=== PATIENT | male | born 1940 | race Caucasian/White ===

== ENCOUNTER 2016-07-29 02:49 | Emergency (ER) | payer OTHER ==
[~2016-07-29] VITALS: Ht 180.3 cm; Wt 97.3 kg
[2016-07-29 04:57] LABS: CARBON DIOXIDE (BICARBONATE) 26.2 MEQ/L (20-31)
[2016-07-29 04:57] LABS: HEMATOCRIT 38.2 % (38.0-50.0); MCH 29.6 PG (29.0-34.0); MCHC 34.6 G/DL (30.0-36.0); MCV 85.7 FL (86-99); MEAN PLAT.VOLUME 11.4 uM^3 (9.0-12.4); PLATELET COUNT 122 K/uL (156-360); RBC DIS.WIDTH-CV 11.9 % (11.8-14.6); RBC DIS.WIDTH-SD 37.2 % (39-53); RED BLOOD COUNT 4.46 M/uL (4.00-5.50); WHITE BLOOD COUNT 5.5 K/uL (4.1-10.2)
[2016-07-29 05:23] LABS: CHLORIDE 102 mEq/L (99-109); POTASSIUM 3.5 mEq/L (3.7-5.4); SODIUM 137 mEq/L (136-147); TROP-I INTERPRETATION NEGATIVE; TROPONIN-I 0.01 ng/mL (0.0-0.30)
[2016-07-29 05:24] LABS: GLUCOSE 114 mg/dL (70-99)
[2016-07-29 05:26] LABS: ANION GAP 12 MEQ/L (2-14)
[2016-07-29 05:28] LABS: GFR ESTIMATE (CALCULATED) > 59 mL/min/
[2016-07-29 05:29] LABS: UREA NITROGEN (BUN) 21 mg/dL (9-23)
[2016-07-29] MEDS ORDERED: HYCODAN SYRUP480 ML PO (07:15)
[2016-07-29] MEDS ORDERED: VENTOLIN HFA18 GM IH (07:15)
[2016-07-29] MEDS ORDERED: PREDNISONE50 MG PO (07:15)
[2016-07-29 07:31] VITALS: BP 137/80
== END 2016-07-29 07:38 | disposition home or self-care (01) ==
LOC: EME 02:49
PROVIDERS: Emergency Medicine
DX: J40 Bronchitis, not specified as acute or chronic (principal); B34.9 Viral infection, unspecified; Z88.0 Allergy status to penicillin; Z87.891 Personal history of nicotine dependence
CPT/HCPCS: 71020; 71260; 80048; 82803; 83605; 83880; 84484; 85027; 87040; 93005; 94640; 99281; 99285

== ENCOUNTER 2016-08-28 21:13 | Emergency (ER) | payer OTHER ==
[~2016-08-28] VITALS: Ht 177.8 cm; Wt 94.8 kg
[~2016-08-28 21:13] MED LIST: HYCODAN SYRUP480 ML PO; PREDNISONE50 MG PO; VENTOLIN HFA18 GM IH
[2016-08-29] MEDS ORDERED: KEFLEX500 MG PO (01:16)
[2016-08-29 01:34] VITALS: BP 160/75
== END 2016-08-29 01:35 | disposition home or self-care (01) ==
LOC: EME 21:13
DX: S50.01XA Contusion of right elbow, initial encounter (principal); S51.011A Laceration without foreign body of right elbow, initial encounter; W26.8XXA Contact with other sharp object(s), not elsewhere classified, initial encounter; Y93.89 Activity, other specified; Z23 Encounter for immunization
CPT/HCPCS: 73080; 99281; 99284